=== PATIENT | male | born 1955 ===

== ENCOUNTER 2018-08-24 08:14 | Emergency (ER) | payer SELFPAY ==
[2018-08-24 08:16] VITALS: BMI 24.2
[2018-08-24 08:17] VITALS: RESP 18
--- NOTE | 2018-08-24 08:31 | ED PDOC ---
Upper Extremity Pain/Injury Time Seen by Provider: 08/24/18 08:20 Chief Complaint (Nursing): Abnormal Skin Integrity Chief Complaint (Provider): Abnormal Skin Integrity History Per: Patient History/Exam Limitations: no limitations Onset/Duration Of Symptoms: Sudden Onset Current Symptoms Are (Timing): Still Present Additional Complaint(s): 63 year old male with medical history of hypertension, present to the emergency department for an evaluation of a right wrist laceration sustained accidentally from glass piece yesterday afternoon. He attempted to use OTC liquid bandage to close wound, however, laceration remains open. Patient states he received tetanus shot yesterday at [facility]. Otherwise, he denies any active bleeding or further complaints. PCP: Dr. Devon Mosqueda Past Medical History Reviewed: Historical Data, Nursing Documentation, Vital Signs Vital Signs: Last Vital Signs Temp 99.0 F 08/24/18 08:16 Pulse 113 H 08/24/18 08:16 Resp 18 08/24/18 08:16 BP 182/107 H 08/24/18 08:16 Pulse Ox 99 08/24/18 08:16 - Medical History PMH: HTN - Surgical History Surgical History: No Surg Hx - Family History Family History: States: Unknown Family Hx - Social History Current smoker - smoking cessation education provided: Yes Alcohol: Social Drugs: Denies - Home Medications Home Medications: Ambulatory Orders Medication Instructions Recorded Sulfamethoxazole/Trimethoprim 1 tab PO BID #20 tab 08/24/18 [Bactrim DS 800 mg-160 mg] - Allergies Allergies/Adverse Reactions: Allergies Allergy/AdvReac Type Severity Reaction Status Date / Time No Known Allergies Allergy Verified 08/24/18 08:28 Review of Systems ROS Statement: Except As Marked, All Systems Reviewed And Found Negative Musculoskeletal: Positive for: Hand Pain (right wrist laceration). Negative for: Other (active bleeding) Physical Exam - Reviewed Nursing Documentation Reviewed: Yes Vital Signs Reviewed: Yes - Physical Exam Appears: Positive for: Non-toxic, No Acute Distress Pulses-Radial (R): 2+ Extremity: Positive for: Normal ROM (right digits and wrist), Other (3cm laceration to volar aspect of right wrist). Negative for: Swelling (or erythema/discharge of right wrist) Neurological/Psych: Positive for: Awake, Alert, Normal Tone, Oriented. Negative for: Motor/Sensory Deficits (right hand) - ECG O2 Sat by Pulse Oximetry: 99 (RA) Pulse Ox Interpretation: Normal Medical Decision Making Medical Decision Making: Time: 824 Initial Plan: will discuss with hand surgeon as laceration is > 20 hours old to consider closing with sutures or Steri-strips. Will not close with sutures as their is increased risk of infection laceration occurred greater than 20 hrs ago. Wound irrigated copiously with NS. Closed with steri strips nand placed on bactrim DS. F/u with Dr. Retana Monday Scribe Attestation: Documented by Mehreen Huber, acting as a scribe for Donald Baker MD. Provider Scribe Attestation: All medical record entries made by the Scribe were at my direction and personally dictated by me. I have reviewed the chart and agree that the record accurately reflects my personal performance of the history, physical exam, medical decision making, and the department course for this patient. I have also personally directed, reviewed, and agree with the discharge instructions and disposition. Disposition - Clinical Impression Clinical Impression: Laceration - Patient ED Disposition Is Patient to be Admitted: No Counseled Patient/Family Regarding: Diagnosis, Need For Followup, Rx Given - Disposition Referrals: Jim Retana MD [Medical Doctor] - Disposition: Routine/Home Disposition Time: 09:08 Condition: FAIR Prescriptions: Sulfamethoxazole/Trimethoprim [Bactrim DS 800 mg-160 mg] 1 tab PO BID #20 tab Instructions: Wound Care (DC) Forms: [employer] (Malay) Print Language: PORTUGUESE
[2018-08-24 10:21] VITALS: BP 172/92; PULSE 98; TEMP 99; O2SAT 98
== END 2018-08-24 09:20 | disposition home or self-care (01) ==
LOC: H.ER 08:14
DX: S61.511A Laceration without foreign body of right wrist, initial encounter (principal); W25.XXXA Contact with sharp glass, initial encounter